=== PATIENT | male | born 1995 | race Caucasian/White ===

== ENCOUNTER 2018-06-10 23:40 | Emergency (ER) | payer BC ==
[2018-06-10 23:51] VITALS: BP 164/88
--- NOTE | 2018-06-11 00:39 | EDM.PDOC ---
ED HPI GENERAL MEDICAL PROBLEM - General Chief Complaint: Head Injury Stated Complaint: HIT BACK OF HEAD PLAYING BASKETBALL Time Seen by Provider: 06/10/18 23:57 Source of Information: Reports: Patient, RN Notes Reviewed History Limitations: Reports: No Limitations - History of Present Illness INITIAL COMMENTS - FREE TEXT/NARRATIVE: The patient states that he is in an adult basketball league. He states that he was playing basketball around 19:15 tonight, that he jumped up, but was undercut , causing him to fall backwards, striking the back of his head on the floor. He states that he was dazed, but he did not lose consciousness. He denies having had a headache. No nausea. No vision changes. He complains only of mild discomfort to his posterior scalp. He is otherwise uninjured. The patient states that the only reason he came to the ED tonight is because a friend of his encouraged him. His friend's cousin apparently of an intracranial hemorrhage after striking his head. The patient does not have a PCP. Posterior Head Pain Score (Numeric/FACES): 4 - Related Data Allergies Allergy/AdvReac Type Severity Reaction Status Date / Time No Known Allergies Allergy Verified 06/10/18 23:47 Home Meds: Home Meds . [No Known Home Meds] 06/10/18 [History] Past Medical History - Infectious Disease History Infectious Disease History: Reports: Chicken Pox - Past Surgical History HEENT Surgical History: Reports: Adenoidectomy, Tonsillectomy GI Surgical History: Reports: Appendectomy Social & Family History - Family History Family Medical History: Noncontributory - Tobacco Use Smoking Status *Q: Never Smoker - Caffeine Use Caffeine Use: Reports: Coffee - Alcohol Use Alcohol Use History: Yes Alcohol Use Frequency: Socially - Recreational Drug Use Recreational Drug Use: No - Living Situation & Occupation Living situation: Reports: Single, Alone 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 ED EXAM, HEAD INJURY - Physical Exam Exam: See Below Exam Limited By: No Limitations General Appearance: Alert, WD/WN, No Apparent Distress Head: Normocephalic, Scalp Swelling (mild, occipital), Scalp Tenderness (mild, occipital. No step-off or skull softness) Eyes: Bilateral Eye: EOMI, Normal Inspection, PERRL Ears: Normal External Exam, Normal Canal, Hearing Grossly Normal, Normal TMs Nose: Normal Inspection, Normal Mucousa, No Blood Throat/Mouth: Normal Inspection, Normal Lips, Normal Teeth, Normal Gums, Normal Oropharynx, Normal Voice, No Airway Compromise Neck: Non-Tender, Full Range of Motion, Normal Alignment, Normal Inspection Respiratory: No Respiratory Distress, Lungs Clear, Normal Breath Sounds, No Accessory Muscle Use Cardiovascular: Normal Peripheral Pulses, Regular Rate, Rhythm, No Edema, No Gallop, No JVD, No Murmur, No Rub GI/Abdominal Exam: Normal Bowel Sounds, Soft, Non-Tender, No Organomegaly, No Distention, No Abnormal Bruit, No Mass, Other (Obese) (Male) Exam: Deferred Rectal (Males) Exam: Deferred Back Exam: Full Range of Motion, Normal Inspection, NT Extremities: Normal Inspection, Normal Range of Motion, No Pedal Edema, Normal Capillary Refill 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 Clinically, he does not have a concussion, and, based on his examination, I do not suspect a skull fracture. Because there was no loss of consciousness, and his neurologic examination is completely normal, an emergency CT scan of the head in this case is not indicated, as the risk of radiation exceeds the potential benefit. This was explained at length to the patient, who seems to understand well. I will discharge the patient home with recommendation that he take Tylenol or ibuprofen as needed for discomfort. Departure - Departure Time of Disposition: 00:37 Disposition: Home, Self-Care 01 Condition: Good Clinical Impression: Contusion of occipital region of scalp - Discharge Information *PRESCRIPTION DRUG MONITORING PROGRAM REVIEWED*: Not Applicable *COPY OF PRESCRIPTION DRUG MONITORING REPORT IN PATIENT OSCAR: Not Applicable Instructions: Contusion, [id number] Referrals: PCP,None [Primary Care Provider] - Forms: ED Department Discharge, ED Return to Work/School Form Additional Instructions: You were seen in the emergency room after falling while playing basketball, striking the back of your head. Based on your history and physical examination, you do not have a concussion, and a CT scan of your head was not recommended. Take [id number] Tylenol or ibuprofen as needed for discomfort. You may safely resume your usual activities, including playing basketball. If any other problems, please do not hesitate to return to the ER.
== END 2018-06-11 00:45 | disposition home or self-care (01) ==
LOC: JD.ED 23:40
DX: S00.03XA Contusion of scalp, initial encounter (principal); W19.XXXA Unspecified fall, initial encounter; Y93.67 Activity, basketball
CPT/HCPCS: 99282; 99283